=== PATIENT | male | born 1975 | race Caucasian/White ===

== ENCOUNTER 2016-11-17 12:24 | Inpatient (IN) | payer OTHER ==
[2016-11-17 13:50] VITALS: BMI 22.6
--- NOTE | 2016-11-17 14:28 | HP ---
CIWA Score - CIWA Score Nausea/Vomitin-No Nausea/No Vomiting Muscle Tremors: 4-Moderate,w/Arms Extend Anxiety: 4-Mod. Anxious/Guarded Agitation: 4-Moderately Restless Paroxysmal Sweats: 3 Orientation: 0-Oriented Tacttile Disturbances: 0-None Auditory Disturbances: 0-None Visual Disturbances: 0-None Headache: 2-Mild CIWA-Ar Total Score: 17 Admission ROS BHS - HPI Chief Complaint: I am here for detox. Allergies/Adverse Reactions: Allergies Allergy/AdvReac Type Severity Reaction Status Date / Time Fish Containing Products Allergy Severe Difficulty Verified 11/17/16 14:23 Breathing No Known Drug Allergies Allergy Verified 01/17/16 13:10 History of Present Illness: pt is a 41yr old male with a history of alcohol, cocaine, benzodiazapine dependence seeking detox for treatment. pt is on a mmtp program received 100mg last dose given today. Exam Limitations: No Limitations - Ebola screening Have you traveled outside of the country in the last 21 days: No Have you had contact with anyone from an Ebola affected area: No Have you been sick,other than usual withdrawal symptoms: No Do you have a fever: No - Review of Systems Constitutional: Chills, Diaphoresis, Loss of Appetite, Night Sweats, Changes in sleep, Unintentional Wgt. Loss EENT: reports: Tearing, Nose Congestion Respiratory: reports: No Symptoms reported Cardiac: reports: No Symptoms Reported GI: reports: Poor Appetite, Poor Fluid Intake : reports: No Symptoms Reported Musculoskeletal: reports: No Symptoms Reported Integumentary: reports: Flushing, Sweating Neuro: reports: Tingling, Tremors Endocrine: reports: Flushing, Intolerance to Heat, Increased Hunger Hematology: reports: No Symptoms Reported Psychiatric: reports: Judgement Intact, Mood/Affect Appropiate, Orientated x3, Agitated, Anxious Other Systems: Reviewed and Negative Patient History - Patient Medical History Hx Anemia: No Hx Asthma: Yes Hx Chronic Obstructive Pulmonary Disease (COPD): No Hx Cancer: No Hx Cardiac Disorders: No Hx Congestive Heart Failure: No Hx Hypertension: No Hx Hypercholesterolemia: No Hx Pacemaker: No HX Cerebrovascular Accident: No Hx Seizures: No Hx Dementia: No Hx Diabetes: No Hx Gastrointestinal Disorders: Yes (acid reflux, hemmorhoids ) Hx Liver Disease: Yes (CIRRHOSIS) Hx Genitourinary Disorders: No Hx Sexually Transmitted Disorders: No Hx Renal Disease (ESRD): No Hx Thyroid Disease: No Hx Human Immunodeficiency Virus (HIV): Yes (NO MEDS) Hx Hepatitis C: Yes (NO TREATMENT) Hx Depression: No Hx Suicide Attempt: No (denies) Hx Bipolar Disorder: Yes (ANXIETY DISORDER) Hx Schizophrenia: No - Patient Surgical History Past Surgical History: Yes Hx Neurologic Surgery: No Hx Cataract Extraction: No Hx Cardiac Surgery: No Hx Lung Surgery: No Hx Breast Surgery: No Hx Breast Biopsy: No Hx Abdominal Surgery: No Hx Appendectomy: No Hx Cholecystectomy: No Hx Genitourinary Surgery: No Hx Section: No Hx Orthopedic Surgery: No Other Surgical History: LEFT UPPER WISDOM TOOTH EXTRACTION, 10/2012 Anesthesia Reaction: No - PPD History Documented Results: Negative w/o proof Date: 07/27/15 Results: 0 mm PPD to be Administered?: Yes - Reproductive History Patient is a Female of Child Bearing Age (11 -55 yrs old): No - Smoking Cessation Smoking history: Current every day smoker Have you smoked in the past 12 months: Yes Aproximately how many cigarettes per day: 20 Cigars Per Day: 0 Hx Chewing Tobacco Use: No Initiated information on smoking cessation: Yes 'Breaking Loose' booklet given: 11/17/16 - Substance & Tx. History Hx Alcohol Use: Yes Hx Substance Use: Yes Substance Use Type: Alcohol, Cocaine, Tranquilizers Hx Substance Use Treatment: Yes - Substances Abused Alcohol Route: Oral Frequency: Daily Amount used: 1 CASE OF BEER Age of first use: 14 Date of Last Use: 11/17/16 Alprazolam (Xanax) Route: Oral Frequency: Daily Amount used: 6MG Age of first use: 15 Date of Last Use: 11/16/16 Cocaine Route: Injection Frequency: Daily Amount used: 1 GRAM Age of first use: 16 Date of Last Use: 11/16/16 Marijuana/Hashish Route: Smoking Frequency: Daily Amount used: 1 BLUNT Age of first use: 13 Date of Last Use: 11/17/16 Heroin Route: Injection Frequency: Daily Amount used: 1-2 BAGS Age of first use: 16 Date of Last Use: 11/16/16 Family Disease History - Family Disease History Family Disease History: Diabetes: Grandparent (ALCOHOL), Heart Disease: Grandparent, Respiratory: Grandparent, Mother (alcohol), Other: Grandparent, Mother Admission Physical Exam [facility] - Vital Signs Vital Signs: Vital Signs - 24 hr 11/17/16 13:46 Temperature 98 F Pulse Rate 64 Respiratory 20 Rate Blood Pressure 110/64 - Physical General Appearance: Yes: Appropriately Dressed, Moderate Distress, Tremorous, Irritable, Sweating, Anxious HEENTM: Yes: Hearing grossly Normal, Nasal Congestion, Rhinorrhea Respiratory: Yes: Lungs Clear, Normal Breath Sounds, No Respiratory Distress Neck: Yes: No masses,lesions,Nodules Breast: Yes: Within Normal Limits Cardiology: Yes: Regular Rhythm, Regular Rate, S1, S2 Abdominal: Yes: Normal Bowel Sounds, Non Tender, Soft Genitourinary: Yes: Within Normal Limits Back: Yes: Normal Inspection Musculoskeletal: Yes: full range of Motion, Gait Steady, Back pain, Joint Stiffness Extremities: Yes: Normal Capillary Refill, Normal Inspection, Non-Tender, Tremors Neurological: Yes: Fully Oriented, Alert, Normal Response Integumentary: Yes: Normal Color, Diaphoresis Lymphatic: Yes: Within Normal Limits - Diagnostic (1) Alcohol dependence with uncomplicated withdrawal Current Visit: Yes Status: Chronic (2) Uncomplicated sedative, hypnotic or anxiolytic withdrawal Current Visit: Yes Status: Chronic (3) AIDS (acquired immune deficiency syndrome) Current Visit: Yes Status: Chronic Comment: non compliant (4) Alcohol dependence Current Visit: No Status: Deleted (5) Asthma Current Visit: Yes Status: Chronic (6) Cannabis dependence Current Visit: Yes Status: Chronic (7) Cocaine dependence, uncomplicated Current Visit: Yes Status: Chronic (8) Depression with anxiety Current Visit: No Status: Deleted (9) Essential hypertension Current Visit: No Status: Deleted (10) Hepatitis C Current Visit: No Status: Chronic Qualifiers: Viral hepatitis chronicity: chronic Hepatic coma status: without hepatic coma Qualified Code(s): B18.2 - Chronic viral hepatitis C (11) Methadone maintenance therapy patient Current Visit: Yes Status: Chronic Comment: last dose taken today 100mg (12) Nicotine dependence Current Visit: Yes Status: Chronic Cleared for Admission [facility] - Detox or Rehab [facility] Level of Care: Medically Managed Detox Regimen/Protocol: Valium [facility] Breath Alcohol Content Breath Alcohol Content: 0 Urine Drug Screen - Results Urine Drug Screen Results: THC-Marijuana, CARMELA-Cocaine, OPI-Opiates, BZO- Benzodiazepines, MTD-Methadone, TCA-Tricyclic Antidepress, OXY-Oxycodone
[2016-11-17] MEDS ORDERED: hydrOXYzine PAMOATE 50 MG CAPSULE (FP) PO PRN (14:57)
[2016-11-17] MEDS ORDERED: MENTHOL/PHENOL 1 EACH UD MM PRN (14:57)
[2016-11-17] MEDS ORDERED: MAGNESIUM CITRATE 300 ML BOTTLE PO PRN (14:57)
[2016-11-17] MEDS ORDERED: LOPERAMIDE HCL 2 MG CAPSULE PO PRN (14:57)
[2016-11-17] MEDS ORDERED: diphenhydrAMINE HCL 50 MG CAPSULE PO PRN (14:57)
[2016-11-17] MEDS ORDERED: guaiFENesin/D-METHORPHAN HB 10 ML UNIT-DOSE CUPS PO PRN (14:57)
[2016-11-17] MEDS ORDERED: ACETAMINOPHEN 325 MG TABLET (FP) PO PRN (14:57)
[2016-11-17] MEDS ORDERED: IBUPROFEN 400 MG TABLET (FP) PO PRN (14:57)
[2016-11-17] MEDS ORDERED: P-EPHED 60MG/TRIPROLIDI 2.5MG TABLET PO PRN (14:57)
[2016-11-17] MEDS ORDERED: MAG HYDROX/AL HYDROX/SIMETH 30 ML UNIT-DOSE CUP PO PRN (14:57)
[2016-11-17] MEDS ORDERED: MAGNESIUM HYDROX 2400MG/30ML ORAL SUSPENSION 30 ML CUP PO PRN (14:57)
[2016-11-17] MEDS ORDERED: ALBUTEROL SO4 6.7 GM HFA INHALER IH PRN (15:00)
[2016-11-17] MEDS ORDERED: diazePAM 5 MG TABLET PO ONE (16:30)
[2016-11-17] MEDS: diazePAM 5 MG TABLET PO SCH ×2 (17:01→22:33)
[2016-11-17 20:06] LABS: URINE APPEARANCE CLEAR; URINE BILIRUBIN NEGATIVE (NEGATIVE); URINE BLOOD NEGATIVE (NEGATIVE); URINE COLOR AMBER; URINE GLUCOSE (UA) NEGATIVE (NEGATIVE); URINE KETONE NEGATIVE (NEGATIVE); URINE LEUK ESTERASE NEGATIVE (NEGATIVE); URINE NITRITE NEGATIVE (NEGATIVE); URINE PROTEIN NEGATIVE (NEGATIVE); URINE UROBILINOGEN 2.0 E.U/dl E.U./dl (0.2-1.0)
[2016-11-17] MEDS: THIAMINE HCL 100 MG TABLET (FP) PO SCH (22:33)
[2016-11-17] MEDS: RANITIDINE HCL 150 MG TABLET (FP) PO SCH (22:33)
[2016-11-18] MEDS: diazePAM 5 MG TABLET PO SCH ×3 (06:02→22:26)
[2016-11-18] MEDS ORDERED: METHADONE HCL 10 MG TABLET PO SCH (07:30)
[2016-11-18] MEDS ORDERED: METHADONE HCL 40 MG DISPERSABLE TABLET ONE (07:41)
[2016-11-18] MEDS ORDERED: METHADONE HCL 10 MG TABLET ONE (07:41)
[2016-11-18] MEDS: METHADONE 80 MG, METHADONE 20 MG PO SCH (07:43)
[2016-11-18] MEDS: diazePAM 5 MG TABLET PO PRN ×2 (09:38→17:27)
[2016-11-18] MEDS: NICOTINE 21 MG/24 HOURS TOPICAL PATCH TD SCH (09:38)
[2016-11-18] MEDS: PRENATAL VITAMINS W/ FOLIC ACID TABLET (FP) PO SCH (09:39)
[2016-11-18] MEDS: RANITIDINE HCL 150 MG TABLET (FP) PO SCH ×2 (09:39→22:26)
[2016-11-18 10:08] LABS: MCH 27.6 pg (25.7-33.7); MCHC 32.9 g/dl (32.0-35.9); MEAN CELL VOLUME 83.9 fl (80-96); MEAN PLT VOLUME 9.4 fl (7.5-11.1); PLATELET COUNT 99 K/MM3 (134-434); RDW 15.1 % (11.9-15.9); WHITE BLOOD COUNT 4.4 K/mm3 (4.0-10.0)
[2016-11-18 11:03] LABS: ALBUMIN 3.7 g/dl (3.4-5.0); ALK PHOS 109 U/L (45-117); ANION GAP 7 (8-16); BILIRUBIN,TOTAL 0.6 mg/dL (0.2-1.0); CALCIUM 8.2 mg/dL (8.5-10.1); CO2 29 mmol/L (21-32); CREATININE 0.7 mg/dL (0.7-1.3); GLUCOSE,RANDOM 93 mg/dL (74-106); SGOT/AST 75 U/L (15-37); SGPT/ALT 82 U/L (12-78); TOT PROT 7.8 g/dl (6.4-8.2)
--- NOTE | 2016-11-18 11:39 | CONSULT ---
[facility] Psychiatric Consult - Data Date of interview: 11/18/16 Admission source: [facility] Identifying data: Readmission to [facility] for this 41 y/o male seeking detox treatment on for heroin,cocaine,alcohol,benzodiazepine and marihuana dependence.Patent is single,a father of one,homeless,unemployed and supported on [employer] funds. Substance Abuse History: - Smoking Cessation. Smoking history: Current every day smoker. Have you smoked in the past 12 months: Yes. Aproximately how many cigarettes per day: 20. Cigars Per Day: 0. Hx Chewing Tobacco Use: No. Initiated information on smoking cessation: Yes. 'Breaking Loose' booklet given : 11/17/16. - Substance & Tx. History. Hx Alcohol Use: Yes. Hx Substance Use : Yes. Substance Use Type: Alcohol, Cocaine, Tranquilizers. Hx Substance Use Treatment: Yes. - Substances Abused. Alcohol. Route: Oral. Frequency: Daily. Amount used: 1 CASE OF BEER. Age of first use: 14. Date of Last Use: 11/17/16. Alprazolam (Xanax). Route: Oral. Frequency: Daily. Amount used : 6MG. Age of first use: 15. Date of Last Use: 11/16/16. Cocaine. Route: Injection. Frequency: Daily. Amount used: 1 GRAM. Age of first use: 16. Date of Last Use: 11/16/16. Marijuana/Hashish. Route: Smoking. Frequency: Daily. Amount used: 1 BLUNT. Age of first use: 13. Date of Last Use: . Heroin. Route: Injection. Frequency: Daily. Amount used: 1-2 BAGS. Age of first use: 16. Date of Last Use: 11/16/16. Confirmed by patient. Medical History: Remarkable for bronchial asthma,HIV infection since 07/2015 ( not on ART meds),cirrhosis of the liver,hepatitis C,GERD and weight loss. Psychiatric History: No reported history of psychiatric hospitalizations.Patient endorses MDD,Anxiety Disorder and insomnia.He indicates that he is on methadone maintenance (100 mg/day) at the [facility] in the [place].Mr Delgado states that he used to be on zoloft,clonidine, vistaril,seroquel and remeron until he could no longer afford his medications due to cancellation of insurance coverage.Patient expresses the wish to resume his medications on the condition that they be prescribed at low doses.No history of suicide attempts. Physical/Sexual Abuse/Trauma History: Patient denies. Additional Comment: Urine Drug Screen Results: THC-Marijuana, CARMELA-Cocaine, OPI- Opiates, BZO-Benzodiazepines, MTD-Methadone, TCA-Tricyclic Antidepress, OXY- Oxycodone.Noted. Mental Status Exam - Mental Status Exam Alert and Oriented to: Time, Place, Person Cognitive Function: Good Patient Appearance: Well Groomed (thin habitus) Mood: Withdrawn, Anxious Affect: Mood Congruent Patient Behavior: Fatigued, Appropriate, Cooperative Speech Pattern: Clear, Appropriate Voice Loudness: Normal Thought Process: Goal Oriented Thought Disorder: Not Present Hallucinations: Denies Suicidal Ideation: Denies Homicidal Ideation: Denies Insight/Judgement: Poor Sleep: Poorly, Difficulty falling asleep Appetite: Poor, Weight loss Muscle strength/Tone: Normal Gait/Station: Normal Psychiatric Findings - Problem List ([place] 1, 2,3) (1) Alcohol dependence with uncomplicated withdrawal Current Visit: Yes Status: Acute (2) Cannabis dependence Current Visit: Yes Status: Acute (3) Cocaine dependence, uncomplicated Current Visit: Yes Status: Acute (4) Nicotine dependence Current Visit: Yes Status: Acute (5) Uncomplicated sedative, hypnotic or anxiolytic withdrawal Current Visit: Yes Status: Acute (6) Methadone maintenance therapy patient Current Visit: Yes Status: Chronic Comment: last dose taken today 100mg (7) Substance induced mood disorder Current Visit: Yes Status: Acute (8) AIDS (acquired immune deficiency syndrome) Current Visit: Yes Status: Chronic Comment: non compliant (9) Asthma Current Visit: Yes Status: Chronic (10) Hepatitis C Current Visit: Yes Status: Chronic Qualifiers: Viral hepatitis chronicity: chronic Hepatic coma status: without hepatic coma Qualified Code(s): B18.2 - Chronic viral hepatitis C (11) Insomnia Current Visit: No Status: Chronic - Initial Treatment Plan Initial Treatment Plan: Psychoeducation.Detoxification.Medications :remeron 7.5 mg po hs.Side effects/benefits discussed with patient.He agrees with this careplan.Observation.
--- NOTE | 2016-11-18 12:53 | EKG ---
Test Reason : Blood Pressure : / mmHG Vent. Rate : 050 BPM Atrial Rate : 050 BPM P-R Int : 146 ms QRS Dur : 086 ms QT Int : 492 ms P-R-T Axes : 044 061 055 degrees QTc Int : 448 ms SINUS BRADYCARDIA OTHERWISE NORMAL ECG WHEN COMPARED WITH ECG OF 12-OCT-2014 17:24, NO SIGNIFICANT CHANGE WAS FOUND Confirmed by KIERA RODRIGUEZ MD ([id number]) on 11/18/2016 12:53:27 PM Referred By: Confirmed By:KIREA RODRIGUEZ MD
[2016-11-18] MEDS: NICOTINE POLACRILEX 4 MG GUM BC PRN (18:44)
[2016-11-18] MEDS: MIRTAZAPINE 15 MG TABLET (FP) PO SCH (22:26)
[2016-11-18] MEDS: THIAMINE HCL 100 MG TABLET (FP) PO SCH (22:26)
[2016-11-19] MEDS ORDERED: METHADONE HCL 10 MG TABLET ONE (03:53)
[2016-11-19] MEDS ORDERED: METHADONE HCL 40 MG DISPERSABLE TABLET ONE (03:54)
[2016-11-19] MEDS: diazePAM 5 MG TABLET PO PRN ×2 (05:45→17:33)
[2016-11-19] MEDS: METHADONE 80 MG, METHADONE 20 MG PO SCH (07:03)
--- NOTE | 2016-11-19 08:34 | PN ---
S CIWA - CIWA Score Nausea/Vomitin Muscle Tremors: 4-Moderate,w/Arms Extend Anxiety: 4-Mod. Anxious/Guarded Agitation: 4-Moderately Restless Paroxysmal Sweats: 3 Orientation: 0-Oriented Tacttile Disturbances: 1-Very Mild Itch/Numbness Auditory Disturbances: 0-None Visual Disturbances: 0-None Headache: 1-Very Mild CIWA-Ar Total Score: 20 BHS Progress Note (SOAP) Subjective: nausea, sweats, interrupted sleep, anxiety, tremor Objective: 11/19/16 08:33 Vital Signs (72 hours) 11/17/16 11/17/16 11/18/16 13:46 17:26 00:20 Temperature 98 F 97.4 F L Pulse Rate 64 54 L Respiratory 20 18 18 Rate Blood Pressure 110/64 97/59 11/18/16 11/18/16 11/18/16 03:41 06:33 09:37 Temperature 97.1 F L 96.3 F L Pulse Rate 77 70 Respiratory 18 18 18 Rate Blood Pressure 136/93 143/88 11/18/16 11/18/16 11/18/16 14:26 14:29 17:54 Temperature 96.1 F L 96.1 F L 97.6 F Pulse Rate 64 64 63 Respiratory 18 18 18 Rate Blood Pressure 115/75 115/75 113/62 11/18/16 11/19/16 11/19/16 22:23 00:31 03:30 Temperature 96.6 F L Pulse Rate 66 Respiratory 18 18 16 Rate Blood Pressure 123/71 11/19/16 06:38 Temperature 96.3 F L Pulse Rate 69 Respiratory 18 Rate Blood Pressure 122/85 Laboratory Tests 11/17/16 11/18/16 11/18/16 19:00 05:50 05:50 WBC 4.4 RBC 4.51 Hgb 12.4 Hct 37.9 MCV 83.9 MCHC 32.9 RDW 15.1 Plt Count 99 L D MPV 9.4 Sodium 139 Potassium 3.7 Chloride 103 Carbon Dioxide 29 Anion Gap 7 L BUN 13 D Creatinine 0.7 Creat Clearance w eGFR > 60 Random Glucose 93 Calcium 8.2 L Total Bilirubin 0.6 D AST 75 H D ALT 82 H D Alkaline Phosphatase 109 D Total Protein 7.8 D Albumin 3.7 Urine Color Maria Urine Appearance Clear Urine pH 5.0 Ur Specific [place] 1.027 Urine Protein Negative Urine Glucose (UA) Negative Urine Ketones Negative Urine Blood Negative Urine Nitrite Negative Urine Bilirubin Negative Urine Urobilinogen 2.0 e.u/dl Ur Leukocyte Esterase Negative RPR Titer 11/18/16 05:50 WBC RBC Hgb Hct MCV MCHC RDW Plt Count MPV Sodium Potassium Chloride Carbon Dioxide Anion Gap BUN Creatinine Creat Clearance w eGFR Random Glucose Calcium Total Bilirubin AST ALT Alkaline Phosphatase Total Protein Albumin Urine Color Urine Appearance Urine pH Ur Specific [place] Urine Protein Urine Glucose (UA) Urine Ketones Urine Blood Urine Nitrite Urine Bilirubin Urine Urobilinogen Ur Leukocyte Esterase RPR Titer Nonreactive Assessment: 11/19/16 08:33 withdrawal sx, Plan: cont detox, fluids, encourage ambulation
[2016-11-19] MEDS ORDERED: SERTRALINE HCL 25 MG TABLET (FP) PO SCH (10:00)
[2016-11-19] MEDS: RANITIDINE HCL 150 MG TABLET (FP) PO SCH ×2 (10:35→22:15)
[2016-11-19] MEDS: diazePAM 5 MG TABLET PO SCH ×2 (10:36→22:15)
[2016-11-19] MEDS: PRENATAL VITAMINS W/ FOLIC ACID TABLET (FP) PO SCH (10:36)
[2016-11-19] MEDS: NICOTINE 21 MG/24 HOURS TOPICAL PATCH TD SCH (10:36)
[2016-11-19] MEDS: NICOTINE POLACRILEX 4 MG GUM BC PRN (17:34)
[2016-11-19] MEDS: THIAMINE HCL 100 MG TABLET (FP) PO SCH (22:15)
[2016-11-19] MEDS: MIRTAZAPINE 15 MG TABLET (FP) PO SCH (22:16)
[2016-11-20] MEDS ORDERED: METHADONE HCL 10 MG TABLET ONE (03:33)
[2016-11-20] MEDS ORDERED: METHADONE HCL 40 MG DISPERSABLE TABLET ONE (03:34)
[2016-11-20] MEDS: diazePAM 5 MG TABLET PO PRN ×2 (05:45→14:38)
[2016-11-20] MEDS: METHADONE 80 MG, METHADONE 20 MG PO SCH (07:10)
[2016-11-20] MEDS: NICOTINE 21 MG/24 HOURS TOPICAL PATCH TD SCH (10:54)
[2016-11-20] MEDS: diazePAM 5 MG TABLET PO SCH ×2 (10:55→22:08)
[2016-11-20] MEDS: RANITIDINE HCL 150 MG TABLET (FP) PO SCH ×2 (10:55→22:08)
[2016-11-20] MEDS: PRENATAL VITAMINS W/ FOLIC ACID TABLET (FP) PO SCH (10:55)
--- NOTE | 2016-11-20 12:58 | PN ---
S CIWA - CIWA Score Nausea/Vomitin Muscle Tremors: 4-Moderate,w/Arms Extend Anxiety: 4-Mod. Anxious/Guarded Agitation: 4-Moderately Restless Paroxysmal Sweats: 3 Orientation: 0-Oriented Tacttile Disturbances: 0-None Auditory Disturbances: 0-None Visual Disturbances: 0-None Headache: 0-None Present CIWA-Ar Total Score: 18 BHS Progress Note (SOAP) Subjective: nausea, sweats, interrupted sleep, anxiety, tremor Objective: 11/20/16 12:57 Vital Signs - 8 hr 11/20/16 11/20/16 06:37 10:18 Temperature 97.4 F L 98.1 F Pulse Rate 60 69 Respiratory 18 20 Rate Blood Pressure 146/97 113/78 11/20/16 12:57 Laboratory Tests 11/17/16 11/18/16 11/18/16 19:00 05:50 05:50 WBC 4.4 RBC 4.51 Hgb 12.4 Hct 37.9 MCV 83.9 MCHC 32.9 RDW 15.1 Plt Count 99 L D MPV 9.4 Sodium 139 Potassium 3.7 Chloride 103 Carbon Dioxide 29 Anion Gap 7 L BUN 13 D Creatinine 0.7 Creat Clearance w eGFR > 60 Random Glucose 93 Calcium 8.2 L Total Bilirubin 0.6 D AST 75 H D ALT 82 H D Alkaline Phosphatase 109 D Total Protein 7.8 D Albumin 3.7 Urine Color Maria Urine Appearance Clear Urine pH 5.0 Ur Specific [place] 1.027 Urine Protein Negative Urine Glucose (UA) Negative Urine Ketones Negative Urine Blood Negative Urine Nitrite Negative Urine Bilirubin Negative Urine Urobilinogen 2.0 e.u/dl Ur Leukocyte Esterase Negative RPR Titer 11/18/16 05:50 WBC RBC Hgb Hct MCV MCHC RDW Plt Count MPV Sodium Potassium Chloride Carbon Dioxide Anion Gap BUN Creatinine Creat Clearance w eGFR Random Glucose Calcium Total Bilirubin AST ALT Alkaline Phosphatase Total Protein Albumin Urine Color Urine Appearance Urine pH Ur Specific [place] Urine Protein Urine Glucose (UA) Urine Ketones Urine Blood Urine Nitrite Urine Bilirubin Urine Urobilinogen Ur Leukocyte Esterase RPR Titer Nonreactive Assessment: 11/20/16 12:57 withdrawal sx Plan: cont detox, fluids, encourage ambulation
--- NOTE | 2016-11-20 15:06 | PN ---
Psychiatric Progress Note Vital Signs: Vital Signs Period Temp Pulse Resp BP Sys/Miramontes Pulse Ox Last 24 Hr 97.0 F-98.1 F 60-74 18-20 113-146/74-97 Date of Session: 11/20/16 Chief Complaint:: Insomnia HPI: Patient reports insomnia, reports good response on Seroquel 200mg po qhs in the past Current Medications: Active Medications Generic Name Dose Route Start Last Admin Trade Name Freq PRN Reason Stop Dose Admin Acetaminophen 650 mg 11/17/16 14:57 Tylenol - PO Q4H PRN FEVER OR PAIN Al Hydroxide/Mg Hydroxide 30 ml 11/17/16 14:57 Mylanta Oral Suspension - PO Q6H PRN DYSPEPSIA Albuterol Sulfate 2 puff 11/17/16 15:00 Ventolin Hfa Inhaler - IH Q4H PRN ASTHMA Diazepam 5 mg 11/19/16 10:00 11/20/16 10:55 Valium - PO 11/20/16 22:01 5 mg BID ELKIN Administration Diazepam 5 mg 11/21/16 10:00 Valium - PO 11/21/16 10:01 DAILY ELKIN Diphenhydramine HCl 50 mg 11/17/16 14:57 Benadryl - PO HSMR1 PRN INSOMNIA Eucalyptus/Menthol/Phenol/Sorbitol 1 each 11/17/16 14:57 Cepastat Lozenge - MM Q4H PRN SORE THROAT Guaifenesin 10 ml 11/17/16 14:57 Robitussin Dm - PO Q6H PRN COUGH Hydroxyzine Pamoate 50 mg 11/17/16 14:57 11/20/16 14:38 Vistaril - PO 50 mg Q4H PRN Administration AGITATION Ibuprofen 400 mg 11/17/16 14:57 Motrin - PO Q6H PRN SEVERE PAIN Loperamide HCl 4 mg 11/17/16 14:57 Imodium - PO Q6H PRN DIARRHEA Magnesium Citrate 300 ml 11/17/16 14:57 Citroma - PO Q48H PRN CONSTIPATION Magnesium Hydroxide 30 ml 11/17/16 14:57 Milk Of Magnesia - PO DAILY PRN CONSTIPATION Methadone HCl 80 mg/ Methadone 100 mg 11/18/16 07:45 11/20/16 07:10 HCl 20 mg PO 100 mg DAILY@0700 ELKIN Administration Mirtazapine 7.5 mg 11/18/16 22:00 11/19/16 22:16 Remeron - PO 7.5 mg HS ELKIN Administration Nicotine 21 mg 11/18/16 10:00 11/20/16 10:54 Nicoderm Patch - TD 21 mg DAILY ELKIN Administration Nicotine Polacrilex 4 mg 11/17/16 14:57 11/19/16 17:34 Nicorette Gum - BC 4 mg Q2H PRN Administration NICOTINE REPLACEMENT RX Multivit/Folic Acid/Iron 1 tab 11/18/16 10:00 11/20/16 10:55 Vitamins (Sjr) - PO 1 tab DAILY ELKIN Administration Pseudoephedrine/Triprolidine 1 combo 11/17/16 14:57 Actifed - PO TID PRN NASAL CONGESTION Quetiapine Fumarate 200 mg 11/20/16 22:00 Seroquel - PO HS ELKIN Ranitidine HCl 150 mg 11/17/16 22:00 11/20/16 10:55 Zantac - PO 150 mg BID ELKIN Administration Thiamine HCl 100 mg 11/17/16 22:00 11/19/16 22:15 Vitamin B1 - PO 100 mg HS ELKIN Administration Mental Status Exam - Mental Status Exam Alert and Oriented to: Person Cognitive Function: Fair Patient Appearance: Unkempt Mood: Sad Affect: Flat Patient Behavior: Sedated Speech Pattern: Delayed Voice Loudness: Mildly Soft/Quiet Thought Process: Goal Oriented Thought Disorder: Being Controlled Hallucinations: Denies Suicidal Ideation: Denies Homicidal Ideation: Denies Insight/Judgement: Fair Sleep: Difficulty falling asleep Appetite: Fair Muscle strength/Tone: Rigidity Gait/Station: Shuffling Additional Comments: Seroquel 200mg po qhs Psychiatric Treatment Plan - Problem List (1) Alcohol dependence with uncomplicated withdrawal Current Visit: Yes (2) Cannabis dependence Current Visit: Yes (3) Cocaine dependence, uncomplicated Current Visit: Yes (4) Nicotine dependence Current Visit: Yes (5) Substance induced mood disorder Current Visit: Yes Initial treatment plan: Seroquel 200mg po qhs
[2016-11-20] MEDS ORDERED: QUEtiapine FUMARATE 200 MG TABLET PO SCH (22:00)
[2016-11-20] MEDS: THIAMINE HCL 100 MG TABLET (FP) PO SCH (22:08)
[2016-11-20] MEDS: MIRTAZAPINE 15 MG TABLET (FP) PO SCH (22:08)
[2016-11-20] MEDS: NICOTINE POLACRILEX 4 MG GUM BC PRN (23:29)
[2016-11-21] MEDS ORDERED: METHADONE HCL 10 MG TABLET ONE (03:40)
[2016-11-21] MEDS ORDERED: METHADONE HCL 40 MG DISPERSABLE TABLET ONE (03:40)
[2016-11-21] MEDS ORDERED: METHADONE 80 MG, METHADONE 20 MG PO SCH (06:00)
--- NOTE | 2016-11-21 08:46 | PN ---
BHS Progress Note (SOAP) Subjective: no complaints Objective: 11/21/16 08:44 Vital Signs - 24 hr 11/20/16 11/20/16 11/20/16 10:18 13:42 18:09 Temperature 98.1 F 97.0 F L 97.0 F L Pulse Rate 69 74 67 Respiratory 20 20 20 Rate Blood Pressure 113/78 119/74 109/71 11/20/16 11/21/16 21:49 06:35 Temperature 98.4 F 98 F Pulse Rate 70 107 H Respiratory 20 18 Rate Blood Pressure 125/72 144/85 Laboratory Tests 11/17/16 11/18/16 11/18/16 19:00 05:50 05:50 WBC 4.4 RBC 4.51 Hgb 12.4 Hct 37.9 MCV 83.9 MCHC 32.9 RDW 15.1 Plt Count 99 L D MPV 9.4 Sodium 139 Potassium 3.7 Chloride 103 Carbon Dioxide 29 Anion Gap 7 L BUN 13 D Creatinine 0.7 Creat Clearance w eGFR > 60 Random Glucose 93 Calcium 8.2 L Total Bilirubin 0.6 D AST 75 H D ALT 82 H D Alkaline Phosphatase 109 D Total Protein 7.8 D Albumin 3.7 Urine Color Maria Urine Appearance Clear Urine pH 5.0 Ur Specific [place] 1.027 Urine Protein Negative Urine Glucose (UA) Negative Urine Ketones Negative Urine Blood Negative Urine Nitrite Negative Urine Bilirubin Negative Urine Urobilinogen 2.0 e.u/dl Ur Leukocyte Esterase Negative RPR Titer 11/18/16 05:50 WBC RBC Hgb Hct MCV MCHC RDW Plt Count MPV Sodium Potassium Chloride Carbon Dioxide Anion Gap BUN Creatinine Creat Clearance w eGFR Random Glucose Calcium Total Bilirubin AST ALT Alkaline Phosphatase Total Protein Albumin Urine Color Urine Appearance Urine pH Ur Specific [place] Urine Protein Urine Glucose (UA) Urine Ketones Urine Blood Urine Nitrite Urine Bilirubin Urine Urobilinogen Ur Leukocyte Esterase RPR Titer Nonreactive Assessment: 11/21/16 08:45 completed detox, low platelets, elevated lfts secondary to alcoholic hepatitis/ hep c Plan: medicallyt stable d/c to rehab today.
--- NOTE | 2016-11-21 08:48 | DS ---
[facility] Detox Discharge Summary Admission Date: 11/17/16 Discharge Date: 11/21/16 - History Present History: Alcohol Dependence, Cannabis Dependence, Cocaine Dependence, MMTP Pertinent Past History: nicotien dependence, asthma, anxiety, depression and insomnia - Physical Exam Results Vital Signs: Vital Signs Temperature 98 F 11/21/16 06:35 Pulse Rate 107 H 11/21/16 06:35 Respiratory Rate 18 11/21/16 06:35 Blood Pressure 144/85 11/21/16 06:35 O2 Sat by Pulse Oximetry (%) Pertinent Admission Physical Exam Findings: withdrawal sx - Treatment Hospital Course: Detox Protocol Followed, Detoxed Safely, Responded well, Discharged Condition Good, Rehab Referral Accepted Patient has Accepted a Rehab Referral to: Yes - Medication Discharge Medications: Ambulatory Orders Quetiapine Fumarate [Seroquel -] 200 mg PO HS #30 tab 11/20/16 Albuterol Sulfate Inhaler - [Ventolin HFA Inhaler -] 2 inh IH Q4H PRN #1 inh - Diagnosis (1) Alcohol dependence with uncomplicated withdrawal Current Visit: Yes Status: Chronic (2) Cannabis dependence Current Visit: Yes Status: Chronic (3) Cocaine dependence, uncomplicated Current Visit: Yes Status: Chronic (4) Nicotine dependence Current Visit: Yes Status: Chronic (5) Substance induced mood disorder Current Visit: Yes Status: Acute (6) Uncomplicated sedative, hypnotic or anxiolytic withdrawal Current Visit: Yes Status: Chronic (7) AIDS (acquired immune deficiency syndrome) Current Visit: Yes Status: Chronic (8) Asthma Current Visit: Yes Status: Chronic (9) Hepatitis C Current Visit: Yes Status: Chronic Qualifiers: Viral hepatitis chronicity: chronic Hepatic coma status: without hepatic coma Qualified Code(s): B18.2 - Chronic viral hepatitis C (10) Methadone maintenance therapy patient Current Visit: Yes Status: Chronic (11) Insomnia Current Visit: No Status: Chronic (12) Syncope Current Visit: No Status: Resolved - AMA Did Patient Leave Against Medical Advice: No
[2016-11-21] MEDS ORDERED: diazePAM 5 MG TABLET PO SCH (10:00)
[2016-11-21] MEDS: PRENATAL VITAMINS W/ FOLIC ACID TABLET (FP) PO SCH (10:55)
[2016-11-21] MEDS: RANITIDINE HCL 150 MG TABLET (FP) PO SCH (10:55)
[2016-11-21] MEDS: NICOTINE 21 MG/24 HOURS TOPICAL PATCH TD SCH (10:55)
[2016-11-21 14:08] VITALS: BP 120/75; PULSE 82; TEMP 98.5
== END 2016-11-21 12:44 | disposition other institution (70) | DRG 773 ==
LOC: YASAS 12:24 → Y3N 15:57
PROVIDERS: ADMIT Internal Medicine; ATTEND Internal Medicine
PROC: HZ2ZZZZ Detoxification Services for Substance Abuse Treatment (ICD-10-PCS; principal; 2016-11-17)
DX: F10.230 Alcohol dependence with withdrawal, uncomplicated (principal); F13.230 Sedative, hypnotic or anxiolytic dependence with withdrawal, uncomplicated; F11.20 Opioid dependence, uncomplicated; F14.20 Cocaine dependence, uncomplicated; F12.20 Cannabis dependence, uncomplicated; F17.210 Nicotine dependence, cigarettes, uncomplicated; F19.24 Other psychoactive substance dependence with psychoactive substance-induced mood disorder; B20 Human immunodeficiency virus [HIV] disease; J45.909 Unspecified asthma, uncomplicated; G47.00 Insomnia, unspecified; K21.9 Gastro-esophageal reflux disease without esophagitis; K64.8 Other hemorrhoids; K74.60 Unspecified cirrhosis of liver; Z86.79 Personal history of other diseases of the circulatory system
CPT/HCPCS: 36415; 80053; 81003; 85027; 86593; 93005; 93010

== ENCOUNTER 2016-11-21 13:02 | Inpatient (IN) | payer OTHER ==
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
[2016-11-21] MEDS ORDERED: P-EPHED 60MG/TRIPROLIDI 2.5MG TABLET PO PRN (14:42)
[2016-11-21] MEDS ORDERED: MAGNESIUM CITRATE 300 ML BOTTLE PO PRN (14:42)
[2016-11-21] MEDS ORDERED: NICOTINE POLACRILEX 2 MG GUM BUC PRN (14:42)
[2016-11-21] MEDS ORDERED: diphenhydrAMINE HCL 50 MG CAPSULE PO PRN (14:42)
[2016-11-21] MEDS ORDERED: MENTHOL/PHENOL 1 EACH UD MM PRN (14:42)
[2016-11-21] MEDS ORDERED: LOPERAMIDE HCL 2 MG CAPSULE PO PRN (14:42)
[2016-11-21] MEDS ORDERED: IBUPROFEN 400 MG TABLET (FP) PO PRN (14:42)
[2016-11-21] MEDS ORDERED: hydrOXYzine PAMOATE 50 MG CAPSULE (FP) PO PRN (14:42)
[2016-11-21] MEDS ORDERED: MAGNESIUM HYDROX 2400MG/30ML ORAL SUSPENSION 30 ML CUP PO PRN (14:42)
[2016-11-21] MEDS ORDERED: ACETAMINOPHEN 325 MG TABLET (FP) PO PRN (14:42)
[2016-11-21] MEDS ORDERED: MAG HYDROX/AL HYDROX/SIMETH 30 ML UNIT-DOSE CUP PO PRN (14:42)
[2016-11-21] MEDS ORDERED: guaiFENesin/D-METHORPHAN HB 10 ML UNIT-DOSE CUPS PO PRN (14:42)
[2016-11-21] MEDS ORDERED: ALBUTEROL SO4 6.7 GM HFA INHALER IH PRN (14:43)
--- NOTE | 2016-11-21 16:37 | HP ---
[facility] Rehab Assess/Revision - Admission History Admitted to Rehab from: [facility] Date of Admission to Rehab: 11/21/16 - Findings Detox History & Physical reviewed: Yes Concur with findings: Yes Comments/Additional Findings: transferred from detox to rehab admission as per protocol
[2016-11-21] MEDS ORDERED: THIAMINE HCL 100 MG TABLET (FP) PO SCH (22:00)
[2016-11-21] MEDS ORDERED: QUEtiapine FUMARATE 100 MG TABLET (FP) PO SCH (22:00)
[2016-11-22 06:41] VITALS: BP 128/72; PULSE 64; TEMP 97.2
[2016-11-22] MEDS ORDERED: NICOTINE 14 MG/24 HOURS TOPICAL PATCH TD SCH (10:00)
[2016-11-22] MEDS ORDERED: PRENATAL VITAMINS W/ FOLIC ACID TABLET (FP) PO SCH (10:00)
== END 2016-11-22 07:15 | disposition left against medical advice (07) | DRG 770 ==
LOC: YASAS 13:02 → Y3W 13:03
PROVIDERS: ADMIT Psychiatry & Neurology Psychiatry; ATTEND Psychiatry & Neurology Psychiatry
PROC: HZ42ZZZ Group Counseling for Substance Abuse Treatment, Cognitive-Behavioral (ICD-10-PCS; principal; 2016-11-21)
DX: F10.20 Alcohol dependence, uncomplicated (principal); F13.20 Sedative, hypnotic or anxiolytic dependence, uncomplicated; F11.20 Opioid dependence, uncomplicated; F14.20 Cocaine dependence, uncomplicated; F12.20 Cannabis dependence, uncomplicated; F17.210 Nicotine dependence, cigarettes, uncomplicated; F19.24 Other psychoactive substance dependence with psychoactive substance-induced mood disorder; F33.9 Major depressive disorder, recurrent, unspecified; F39 Unspecified mood [affective] disorder; B20 Human immunodeficiency virus [HIV] disease; J45.909 Unspecified asthma, uncomplicated; B18.2 Chronic viral hepatitis C; G47.00 Insomnia, unspecified; K74.60 Unspecified cirrhosis of liver

== ENCOUNTER 2017-03-05 11:51 | Inpatient (IN) | payer OTHER ==
[2017-03-05 13:38] VITALS: BMI 19.1
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
[2017-03-05] MEDS ORDERED: NICOTINE POLACRILEX 2 MG GUM BUC PRN (14:36)
[2017-03-05] MEDS ORDERED: LOPERAMIDE HCL 2 MG CAPSULE PO PRN (14:36)
[2017-03-05] MEDS ORDERED: ACETAMINOPHEN 325 MG TABLET (FP) PO PRN (14:36)
[2017-03-05] MEDS ORDERED: MAGNESIUM CITRATE 300 ML BOTTLE PO PRN (14:36)
[2017-03-05] MEDS ORDERED: guaiFENesin/D-METHORPHAN HB 10 ML UNIT-DOSE CUPS PO PRN (14:36)
[2017-03-05] MEDS ORDERED: P-EPHED 60MG/TRIPROLIDI 2.5MG TABLET PO PRN (14:36)
[2017-03-05] MEDS ORDERED: IBUPROFEN 400 MG TABLET (FP) PO PRN (14:36)
[2017-03-05] MEDS ORDERED: MENTHOL/PHENOL 1 EACH UD MM PRN (14:36)
[2017-03-05] MEDS ORDERED: diphenhydrAMINE HCL 50 MG CAPSULE PO PRN (14:36)
[2017-03-05] MEDS ORDERED: MAGNESIUM HYDROX 2400MG/30ML ORAL SUSPENSION 30 ML CUP PO PRN (14:36)
[2017-03-05] MEDS ORDERED: ALBUTEROL SO4 6.7 GM HFA INHALER IH PRN (14:41)
[2017-03-05] MEDS ORDERED: diazePAM 5 MG TABLET PO ONE (15:02)
[2017-03-05] MEDS: NICOTINE 21 MG/24 HOURS TOPICAL PATCH TD SCH (15:27)
[2017-03-05 17:43] LABS: URINE APPEARANCE CLEAR; URINE BILIRUBIN NEGATIVE (NEGATIVE); URINE BLOOD NEGATIVE (NEGATIVE); URINE COLOR DKYELLOW; URINE GLUCOSE (UA) NEGATIVE (NEGATIVE); URINE KETONE NEGATIVE (NEGATIVE); URINE LEUK ESTERASE NEGATIVE (NEGATIVE); URINE NITRITE NEGATIVE (NEGATIVE); URINE PROTEIN NEGATIVE (NEGATIVE); URINE UROBILINOGEN 2.0 E.U/dl E.U./dl (0.2-1.0)
[2017-03-05] MEDS: THIAMINE HCL 100 MG TABLET (FP) PO SCH (22:51)
[2017-03-05] MEDS: RANITIDINE HCL 150 MG TABLET (FP) PO SCH (22:51)
[2017-03-05] MEDS: diazePAM 5 MG TABLET PO SCH (22:51)
[2017-03-06] MEDS: diazePAM 5 MG TABLET PO SCH ×3 (06:14→22:14)
[2017-03-06] MEDS ORDERED: METHADONE HCL 10 MG TABLET PO ONE (08:20)
[2017-03-06] MEDS ORDERED: METHADONE 80 MG, METHADONE 30 MG PO ONE (08:35)
[2017-03-06] MEDS ORDERED: METHADONE HCL 10 MG TABLET ONE (09:32)
[2017-03-06] MEDS ORDERED: METHADONE HCL 40 MG DISPERSABLE TABLET ONE (09:32)
[2017-03-06 10:08] LABS: MCH 27.4 pg (25.7-33.7); MCHC 33.2 g/dl (32.0-35.9); MEAN CELL VOLUME 82.4 fl (80-96); MEAN PLT VOLUME 8.3 fl (7.5-11.1); PLATELET COUNT 79 K/MM3 (134-434); RDW 15.4 % (11.9-15.9); WHITE BLOOD COUNT 3.9 K/mm3 (4.0-10.0)
[2017-03-06 10:25] LABS: ALBUMIN 3.3 g/dl (3.4-5.0); ALK PHOS 67 U/L (45-117); ANION GAP 7 (8-16); BILIRUBIN,TOTAL 0.9 mg/dL (0.2-1.0); CALCIUM 8.3 mg/dL (8.5-10.1); CO2 28 mmol/L (21-32); COCKROFT - GAULT 119.59; CREATININE 0.7 mg/dL (0.7-1.3); GLUCOSE,RANDOM 94 mg/dL (74-106); SGOT/AST 59 U/L (15-37); SGPT/ALT 47 U/L (12-78); TOT PROT 7.2 g/dl (6.4-8.2)
[2017-03-06] MEDS: PRENATAL VITAMINS W/ FOLIC ACID TABLET (FP) PO SCH (10:53)
[2017-03-06] MEDS: NICOTINE 21 MG/24 HOURS TOPICAL PATCH TD SCH (10:55)
--- NOTE | 2017-03-06 11:09 | PN ---
S CIWA - CIWA Score Nausea/Vomitin Muscle Tremors: 3 Anxiety: 3 Agitation: 3 Paroxysmal Sweats: 1-Minimal Palms Moist Orientation: 0-Oriented Tacttile Disturbances: 1-Very Mild Itch/Numbness Auditory Disturbances: 1-Very Mild Visual Disturbances: 1-Very Mild Sensitivity Headache: 2-Mild CIWA-Ar Total Score: 18 BHS Progress Note (SOAP) Subjective: ALERT,IRRITABLE,ANXIOUS,INTERRUPTED SLEEP,TREMOR Objective: 03/06/17 11:07 Vital Signs Temperature 98.2 F 03/06/17 06:00 Pulse Rate 68 03/06/17 10:00 Respiratory Rate 18 03/06/17 10:00 Blood Pressure 141/79 03/06/17 10:00 O2 Sat by Pulse Oximetry (%) EKG NSR,NORMAL ECG 03/06/17 03/06/17 07:00 07:00 WBC 3.9 L RBC 4.71 Hgb 12.9 Hct 38.8 MCV 82.4 MCHC 33.2 RDW 15.4 Plt Count 79 L D Sodium 136 Potassium 4.2 Chloride 101 Carbon Dioxide 28 Anion Gap 7 L BUN 14 Creatinine 0.7 LABS PENDING Assessment: 03/06/17 11:08 WITHDRAWAL SYMPTOM 03/06/17 11:09 Plan: CONTINUE DETOX
--- NOTE | 2017-03-06 11:21 | EKG ---
Test Reason : Blood Pressure : / mmHG Vent. Rate : 067 BPM Atrial Rate : 067 BPM P-R Int : 138 ms QRS Dur : 088 ms QT Int : 440 ms P-R-T Axes : 024 057 050 degrees QTc Int : 464 ms NORMAL SINUS RHYTHM WHEN COMPARED WITH ECG OF 17-NOV-2016 16:50, NO SIGNIFICANT CHANGE WAS FOUND Confirmed by JUAN FRANCOIS MD ([id number]) on 03/06/2017 11:20:58 AM Referred By: Confirmed By:JUAN FRANCOIS MD
[2017-03-06] MEDS: MAG HYDROX/AL HYDROX/SIMETH 30 ML UNIT-DOSE CUP PO PRN (13:00)
[2017-03-06] MEDS: RANITIDINE HCL 150 MG TABLET (FP) PO SCH ×2 (13:00→22:14)
[2017-03-06] MEDS: diazePAM 5 MG TABLET PO PRN (17:25)
[2017-03-06] MEDS: cloNIDine HCL 0.1 MG TABLET PO PRN (19:03)
[2017-03-06] MEDS: hydrOXYzine PAMOATE 50 MG CAPSULE (FP) PO PRN (19:03)
--- NOTE | 2017-03-06 19:26 | CONSULT ---
[facility] Psychiatric Consult - Data Date of interview: 03/06/17 Admission source: [facility] Identifying data: Another admission to [facility] for this 41 y/o male seeking detox treatment on for heroin,cocaine,alcohol,benzodiazepine and marihuana dependence.Patient is single,a father of one,homeless,unemployed and supported on [employer] funds. Substance Abuse History: - Smoking Cessation. Smoking history: Current every day smoker. Have you smoked in the past 12 months: Yes. Aproximately how many cigarettes per day: 20. Cigars Per Day: 0. Hx Chewing Tobacco Use: No. Initiated information on smoking cessation: Yes. 'Breaking Loose' booklet given : 03/05/17. - Substance & Tx. History. Hx Alcohol Use: Yes. Hx Substance Use : Yes. Substance Use Type: Alcohol, Cocaine, Marijuana, Opiates, Tranquilizers. Hx Substance Use Treatment: Yes (02/09 IN [facility]). - Substances Abused. Alcohol. Route: Oral. Frequency: Daily. Amount used: 1 pint/ 1 case of beer. Age of first use: 13. Date of Last Use: 03/05/17. Alprazolam (Xanax). Route: Oral. Frequency: Daily. Amount used: 10mg. Age of first use: 12. Date of Last Use: 03/03/17. Cocaine. Route: Injection. Frequency: Daily. Amount used: 5 bags. Age of first use: 16. Date of Last Use : 03/05/17. Heroin. Route: Injection. Frequency: Daily. Amount used: 5 bags. Age of first use: 16. Date of Last Use: 03/05/17. Marijuana/ Hashish. Route: Smoking. Frequency: Daily. Amount used: 2-3 bags. Age of first use: 13. Date of Last Use: 03/05/17. Confirmed by patient. Medical History: Bronchial asthma,HIV infection since 07/2015 (not on ART meds), cirrhosis of the liver,gastritis,hepatitis C,GERD,hypertension and weight loss. Psychiatric History: Patient denies history of psychiatric hospitalizations.Diagnosed with MDD,Anxiety Disorder and insomnia.Currently on methadone maintenance (100 mg/day) at the [facility] in the [place].Mr Delgado reports that he is prescribed zoloft 15 mg/day (?) + clonidine ( unknown dose) + vistaril (dose notv recalled) + seroquel 200 mg/hs + remeron 45 mg/hs.No history of suicide attempts.Questionable historian.Patient states that he last took these medications in January 2017. Physical/Sexual Abuse/Trauma History: Patient declines discussion of this topic. Additional Comment: Urine Drug Screen Results: THC-Marijuana, CARMELA-Cocaine, OPI- Opiates, BAR-Barbiturates, BZO-Benzodiazepines, MTD-Methadone, OXY- Oxycodone.Noted. Mental Status Exam - Mental Status Exam Alert and Oriented to: Time, Place, Person Cognitive Function: Good Patient Appearance: Well Groomed Mood: Nervous, Anxious, Apprehensive Affect: Mood Congruent Patient Behavior: Fatigued, Appropriate, Cooperative Speech Pattern: Clear Voice Loudness: Normal Thought Process: Goal Oriented Thought Disorder: Not Present Hallucinations: Denies Suicidal Ideation: Denies Homicidal Ideation: Denies Insight/Judgement: Poor Sleep: Poorly, Difficulty falling asleep Appetite: Good Muscle strength/Tone: Normal Gait/Station: Normal Psychiatric Findings - Problem List (Tell 1, 2,3) (1) Alcohol dependence with uncomplicated withdrawal Current Visit: Yes Status: Acute (2) Opioid dependence on agonist therapy Current Visit: Yes Status: Acute (3) Cannabis dependence Current Visit: Yes Status: Acute (4) Cocaine dependence, uncomplicated Current Visit: Yes Status: Acute (5) Uncomplicated sedative, hypnotic or anxiolytic withdrawal Current Visit: Yes Status: Acute (6) Nicotine dependence Current Visit: Yes Status: Acute (7) Mood disorder Current Visit: Yes Status: Chronic (8) Cirrhosis Current Visit: Yes Status: Chronic (9) GERD (gastroesophageal reflux disease) Current Visit: Yes Status: Chronic (10) HIV (human immunodeficiency virus infection) Current Visit: Yes Status: Chronic (11) Asthma Current Visit: Yes Status: Chronic (12) Hepatitis C Current Visit: Yes Status: Chronic Qualifiers: Viral hepatitis chronicity: chronic Hepatic coma status: without hepatic coma Qualified Code(s): B18.2 - Chronic viral hepatitis C (13) Insomnia Current Visit: Yes Status: Acute - Initial Treatment Plan Initial Treatment Plan: Psychoeducation.Detoxification.Medications : seroquel 100 mg po hs + zoloft 50 mg po daily.Side effects/benefits discussed with patient.He agrees with careplan.Observation.
[2017-03-06] MEDS ORDERED: QUEtiapine FUMARATE 50 MG TABLET PO SCH (22:00)
[2017-03-06] MEDS: QUEtiapine FUMARATE 100 MG TABLET (FP) PO SCH (22:14)
[2017-03-06] MEDS: THIAMINE HCL 100 MG TABLET (FP) PO SCH (22:14)
[2017-03-07] MEDS ORDERED: METHADONE HCL 40 MG DISPERSABLE TABLET ONE (04:08)
[2017-03-07] MEDS ORDERED: METHADONE HCL 10 MG TABLET ONE (04:09)
[2017-03-07] MEDS: METHADONE 80 MG, METHADONE 30 MG PO SCH (05:09)
[2017-03-07] MEDS ORDERED: METHADONE HCL 10 MG TABLET PO SCH (06:00)
[2017-03-07] MEDS: PRENATAL VITAMINS W/ FOLIC ACID TABLET (FP) PO SCH (10:18)
[2017-03-07] MEDS: RANITIDINE HCL 150 MG TABLET (FP) PO SCH ×2 (10:19→22:02)
[2017-03-07] MEDS: hydrOXYzine PAMOATE 50 MG CAPSULE (FP) PO PRN (10:19)
[2017-03-07] MEDS: SERTRALINE HCL 50 MG TABLET (FP) PO SCH (10:19)
[2017-03-07] MEDS: NICOTINE 21 MG/24 HOURS TOPICAL PATCH TD SCH (10:19)
[2017-03-07] MEDS: diazePAM 5 MG TABLET PO SCH ×2 (10:19→22:02)
[2017-03-07] MEDS: cloNIDine HCL 0.1 MG TABLET PO PRN ×2 (10:19→22:02)
--- NOTE | 2017-03-07 11:24 | PN ---
S CIWA - CIWA Score Nausea/Vomitin Muscle Tremors: 3 Anxiety: 2 Agitation: 2 Paroxysmal Sweats: 1-Minimal Palms Moist Orientation: 0-Oriented Tacttile Disturbances: 1-Very Mild Itch/Numbness Auditory Disturbances: 1-Very Mild Visual Disturbances: 1-Very Mild Sensitivity Headache: 2-Mild CIWA-Ar Total Score: 16 S Progress Note (SOAP) Subjective: ALERT,IRRITABLE,ANXIOUS,INTERRUPTED SLEEP,TREMOR Objective: 03/07/17 11:23 Vital Signs Temperature 96.8 F L 03/07/17 10:24 Pulse Rate 78 03/07/17 10:24 Respiratory Rate 18 03/07/17 10:24 Blood Pressure 146/87 03/07/17 10:24 O2 Sat by Pulse Oximetry (%) Laboratory Last Values WBC 3.9 K/mm3 (4.0-10.0) L 03/06/17 07:00 RBC 4.71 M/mm3 (4.00-5.60) 03/06/17 07:00 Hgb 12.9 GM/dL (11.7-16.9) 03/06/17 07:00 Hct 38.8 % (35.4-49) 03/06/17 07:00 MCV 82.4 fl (80-96) 03/06/17 07:00 MCHC 33.2 g/dl (32.0-35.9) 03/06/17 07:00 RDW 15.4 % (11.9-15.9) 03/06/17 07:00 Plt Count 79 K/MM3 (134-434) L D 03/06/17 07:00 MPV 8.3 fl (7.5-11.1) D 03/06/17 07:00 Sodium 136 mmol/L (136-145) 03/06/17 07:00 Potassium 4.2 mmol/L (3.5-5.1) 03/06/17 07:00 Chloride 101 mmol/L (98-107) 03/06/17 07:00 Carbon Dioxide 28 mmol/L (21-32) 03/06/17 07:00 Anion Gap 7 (8-16) L 03/06/17 07:00 BUN 14 mg/dL (7-18) 03/06/17 07:00 Creatinine 0.7 mg/dL (0.7-1.3) 03/06/17 07:00 Creat Clearance w eGFR > 60 (>60) 03/06/17 07:00 Random Glucose 94 mg/dL (74-106) 03/06/17 07:00 Calcium 8.3 mg/dL (8.5-10.1) L 03/06/17 07:00 Total Bilirubin 0.9 mg/dL (0.2-1.0) D 03/06/17 07:00 AST 59 U/L (15-37) H D 03/06/17 07:00 ALT 47 U/L (12-78) D 03/06/17 07:00 Alkaline Phosphatase 67 U/L (45-117) D 03/06/17 07:00 Total Protein 7.2 g/dl (6.4-8.2) 03/06/17 07:00 Albumin 3.3 g/dl (3.4-5.0) L 03/06/17 07:00 Urine Color Dky[place] 03/05/17 13:00 Urine Appearance Clear 03/05/17 13:00 Urine pH 5.0 (5.0-8.0) 03/05/17 13:00 Ur Specific [place] 1.025 (1.005-1.025) 03/05/17 13:00 Urine Protein Negative (NEGATIVE) 03/05/17 13:00 Urine Glucose (UA) Negative (NEGATIVE) 03/05/17 13:00 Urine Ketones Negative (NEGATIVE) 03/05/17 13:00 Urine Blood Negative (NEGATIVE) 03/05/17 13:00 Urine Nitrite Negative (NEGATIVE) 03/05/17 13:00 Urine Bilirubin Negative (NEGATIVE) 03/05/17 13:00 Urine Urobilinogen 2.0 e.u/dl E.U./dl (0.2-1.0) 03/05/17 13:00 Ur Leukocyte Esterase Negative (NEGATIVE) 03/05/17 13:00 RPR Titer Nonreactive (NONREACTIVE) 03/06/17 07:00 Assessment: 03/07/17 11:23 WITHDRAWAL SYMPTOM Plan: CONTINUE DETOX
[2017-03-07] MEDS: diazePAM 5 MG TABLET PO PRN (17:53)
[2017-03-07] MEDS: THIAMINE HCL 100 MG TABLET (FP) PO SCH (22:02)
[2017-03-07] MEDS: QUEtiapine FUMARATE 100 MG TABLET (FP) PO SCH (22:02)
[2017-03-08] MEDS ORDERED: METHADONE HCL 10 MG TABLET ONE (04:26)
[2017-03-08] MEDS ORDERED: METHADONE HCL 40 MG DISPERSABLE TABLET ONE (04:26)
[2017-03-08] MEDS: METHADONE 80 MG, METHADONE 30 MG PO SCH (05:07)
[2017-03-08] MEDS: diazePAM 5 MG TABLET PO PRN (05:10)
[2017-03-08] MEDS: MAG HYDROX/AL HYDROX/SIMETH 30 ML UNIT-DOSE CUP PO PRN (06:37)
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
[2017-03-08] MEDS ORDERED: TOLNAFTATE 1% CREAM 15 GM TUBE TP SCH (10:00)
[2017-03-08] MEDS ORDERED: BACITRACIN 30 GM TUBE TOPICAL OINTMENT TP SCH (10:00)
[2017-03-08] MEDS: diazePAM 5 MG TABLET PO SCH (10:33)
[2017-03-08] MEDS: PRENATAL VITAMINS W/ FOLIC ACID TABLET (FP) PO SCH (10:33)
[2017-03-08] MEDS: cloNIDine HCL 0.1 MG TABLET PO PRN (10:33)
[2017-03-08] MEDS: RANITIDINE HCL 150 MG TABLET (FP) PO SCH (10:33)
[2017-03-08] MEDS: SERTRALINE HCL 50 MG TABLET (FP) PO SCH (10:33)
[2017-03-08] MEDS: NICOTINE 21 MG/24 HOURS TOPICAL PATCH TD SCH (10:34)
[2017-03-08 14:16] VITALS: BP 113/66; PULSE 75; TEMP 96.4
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
[2017-03-09] MEDS ORDERED: diazePAM 5 MG TABLET PO SCH (10:00)
== END 2017-03-08 12:41 | disposition home or self-care (01) | DRG 773 ==
LOC: YASAS 11:51 → Y6N 14:58
PROVIDERS: ADMIT Internal Medicine Addiction Medicine; ATTEND Internal Medicine Addiction Medicine
PROC: HZ2ZZZZ Detoxification Services for Substance Abuse Treatment (ICD-10-PCS; principal; 2017-03-08)
DX: F11.20 Opioid dependence, uncomplicated (principal); F10.230 Alcohol dependence with withdrawal, uncomplicated; F14.20 Cocaine dependence, uncomplicated; F17.210 Nicotine dependence, cigarettes, uncomplicated; G47.00 Insomnia, unspecified; K74.69 Other cirrhosis of liver; K21.9 Gastro-esophageal reflux disease without esophagitis; J45.909 Unspecified asthma, uncomplicated; Z21 Asymptomatic human immunodeficiency virus [HIV] infection status; R63.4 Abnormal weight loss; Z68.1 Body mass index [BMI] 19.9 or less, adult; Z91.19 Patient's noncompliance with other medical treatment and regimen; F91.8 Other conduct disorders
CPT/HCPCS: 36415; 80053; 81003; 85027; 86593; 93005; 93010

== ENCOUNTER 2019-12-19 10:56 | Inpatient (IN) | payer OTHER ==
--- NOTE | 2019-12-19 11:20 | BHS.RME ---
Substance Use & Tx History - Substance Use History Alcohol Substance amount: 1.5 cases of beer Frequency of use: Daily Substance route: Oral Date of Last Use: 12/19/19 Opiates (Heroin) Substance amount: 5-6 bags IV Frequency of use: Daily Substance route: Injection (ex: intravenous or skin popping) Date of Last Use: 12/19/19 Benzodiazepines Substance amount: Klonopin 2 mg tabs 3-4 tabs Frequency of use: Daily Substance route: Oral Date of Last Use: 12/14/19 Cannabis Substance amount: 1-2 bags Frequency of use: Less than 3 times per week Substance route: Smoking Date of Last Use: 12/18/19 Physical/Psych/Mental Status - Behavior General Behavior: Increased activity (restlessness, agitation) Eye Contact: Normal - Cooperativeness Cooperativeness: Cooperative - Thinking Thought Processes: Tight, Logical, Goal Directed Thought content: Future oriented - Physical Health Problems Is patient presently having any pain?: No Does patient presently have any injuries (include location): No Does patient currently have a fever: No Is patient : No CIWA Nausea/Vomitin-Mild Nausea/No Vomiting Muscle Tremors: None (drank earlier today) Anxiety: 4-Mod. Anxious/Guarded Agitation: 2 Paroxysmal Sweats: 1-Minimal Palms Moist Orientation: 3-Disoriented Date>2 days Tacttile Disturbances: 0-None Auditory Disturbances: 0-None Visual Disturbances: 0-None Headache: 0-None Present CIWA-Ar Total Score: 11
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
[2019-12-19 12:35] VITALS: BMI 24.0
[2019-12-19] MEDS ORDERED: ALBUTEROL SO4 HFA INHALER IH PRN (12:51)
[2019-12-19] MEDS ORDERED: BISMUTH SUBSALICYLATE 524 MG/30 ML UD PO PRN (12:52)
[2019-12-19] MEDS ORDERED: MAG HYDROX/AL HYDROX/SIMETH 30 ML UNIT-DOSE CUP PO PRN (12:52)
[2019-12-19] MEDS ORDERED: chlordiazePOXIDE HCL 25 MG CAPSULE PO PRN (12:52)
[2019-12-19] MEDS ORDERED: IBUPROFEN 400 MG TABLET (FP) PO PRN (12:52)
[2019-12-19] MEDS ORDERED: MAGNESIUM CITRATE 300 ML BOTTLE PO PRN (12:52)
[2019-12-19] MEDS ORDERED: MAGNESIUM HYDROX 2400MG/30ML ORAL SUSPENSION 30 ML CUP PO PRN (12:52)
[2019-12-19] MEDS ORDERED: ACETAMINOPHEN 325 MG TABLET (FP) PO PRN ×2 (12:52)
[2019-12-19] MEDS ORDERED: MENTHOL/PHENOL 1 EACH UD MM PRN (12:52)
[2019-12-19] MEDS ORDERED: METHOCARBAMOL 500 MG TABLET PO PRN (12:52)
[2019-12-19] MEDS ORDERED: METHADONE HCL 40 MG DISPERSABLE TABLET PO SCH (13:00)
--- NOTE | 2019-12-19 13:53 | CONSULT ---
[facility] Psychiatric Consult - Data Date of interview: 12/19/19
[2019-12-19] MEDS: GABAPENTIN 100 MG CAPSULE PO SCH ×2 (14:39→22:21)
[2019-12-19] MEDS: NICOTINE 21 MG/24 HOURS TOPICAL PATCH TD SCH (14:40)
[2019-12-19] MEDS: FAMOTIDINE 20 MG TABLET PO SCH ×2 (14:40→22:21)
[2019-12-19 16:18] LABS: HEMATOCRIT 38.4 % (35.4-49); HEMOGLOBIN 12.4 GM/dL (11.7-16.9); MCHC 32.2 g/dl (32.0-35.9); MEAN CELL VOLUME 86.8 fl (80-96); MEAN PLT VOLUME 9.4 fl (7.5-11.1); PLATELET COUNT 122 K/MM3 (134-434); RBC 4.42 M/mm3 (4.00-5.60); RDW 16.1 % (11.9-15.9)
[2019-12-19 16:35] LABS: ALBUMIN 3.5 g/dl (3.4-5.0); BILIRUBIN,TOTAL 0.6 mg/dL (0.2-1); BLOOD UREA NITROGEN 16.3 mg/dL (7-18); CALCIUM 9.1 mg/dL (8.5-10.1); CREATININE 0.7 mg/dL (0.55-1.3); POTASSIUM 3.9 mmol/L (3.5-5.1)
[2019-12-19] MEDS: chlordiazePOXIDE HCL 25 MG CAPSULE PO SCH ×2 (17:38→22:21)
[2019-12-19] MEDS: THIAMINE HCL 100 MG TABLET (FP) PO SCH (22:22)
[2019-12-19] MEDS: MELATONIN 5 MG TABLETS PO PRN (22:22)
[2019-12-20] MEDS ORDERED: METHADONE HCL 40 MG DISPERSABLE TABLET ONE (04:25)
[2019-12-20] MEDS ORDERED: METHADONE HCL 10 MG TABLET ONE (04:25)
[2019-12-20] MEDS: METHADONE 40 MG, METHADONE 10 MG PO SCH (05:36)
[2019-12-20] MEDS: chlordiazePOXIDE HCL 25 MG CAPSULE PO SCH ×4 (05:37→22:12)
[2019-12-20] MEDS: GABAPENTIN 100 MG CAPSULE PO SCH ×3 (05:37→22:12)
[2019-12-20] MEDS: FAMOTIDINE 20 MG TABLET PO SCH ×2 (10:14→22:12)
[2019-12-20] MEDS: NICOTINE 21 MG/24 HOURS TOPICAL PATCH TD SCH (10:14)
[2019-12-20] MEDS: PRENATAL VITAMINS W/ FOLIC ACID TABLET (FP) PO SCH (10:14)
--- NOTE | 2019-12-20 11:56 | PN ---
[facility] CIWA - CIWA Score Nausea/Vomitin-Mild Nausea/No Vomiting Muscle Tremors: 3 Anxiety: 3 Agitation: 1-Slight > Activity Paroxysmal Sweats: 2 Orientation: 1-Uncertain about Date Tacttile Disturbances: 0-None Auditory Disturbances: 0-None Visual Disturbances: 1-Very Mild Sensitivity Headache: 0-None Present CIWA-Ar Total Score: 12 S Progress Note (SOAP) Subjective: 44 years old male admitted on 12/19/19 for alcohol and benzo withdrawal sx management treating with librium detox regiment irritable tremor and restlessness received methadone 50 mg feeling ok encourage the patient to attend behavior and psychosocial therapies groups and meetings while in detox Objective: 12/20/19 12:09 Vital Signs Temperature 96.5 F L 12/20/19 08:45 Pulse Rate 67 12/20/19 08:45 Respiratory Rate 18 12/20/19 08:45 Blood Pressure 112/73 12/20/19 08:45 O2 Sat by Pulse Oximetry (%) Laboratory Last Values WBC 4.0 K/mm3 (4.0-10.0) 12/19/19 12:15 RBC 4.42 M/mm3 (4.00-5.60) 12/19/19 12:15 Hgb 12.4 GM/dL (11.7-16.9) 12/19/19 12:15 Hct 38.4 % (35.4-49) 12/19/19 12:15 MCV 86.8 fl (80-96) 12/19/19 12:15 MCH 28.0 pg (25.7-33.7) 12/19/19 12:15 MCHC 32.2 g/dl (32.0-35.9) 12/19/19 12:15 RDW 16.1 % (11.9-15.9) H 12/19/19 12:15 Plt Count 122 K/MM3 (134-434) L D 12/19/19 12:15 MPV 9.4 fl (7.5-11.1) D 12/19/19 12:15 Sodium 137 mmol/L (136-145) 12/19/19 12:15 Potassium 3.9 mmol/L (3.5-5.1) 12/19/19 12:15 Chloride 103 mmol/L (98-107) 12/19/19 12:15 Carbon Dioxide 25 mmol/L (21-32) 12/19/19 12:15 Anion Gap 8 MMOL/L (8-16) 12/19/19 12:15 BUN 16.3 mg/dL (7-18) 12/19/19 12:15 Creatinine 0.7 mg/dL (0.55-1.3) 12/19/19 12:15 Est GFR (CKD-EPI)AfAm 131.17 12/19/19 12:15 Est GFR (CKD-EPI)NonAf 113.17 12/19/19 12:15 Random Glucose 97 mg/dL (74-106) 12/19/19 12:15 Calcium 9.1 mg/dL (8.5-10.1) 12/19/19 12:15 Total Bilirubin 0.6 mg/dL (0.2-1) 12/19/19 12:15 AST 30 U/L (15-37) 12/19/19 12:15 ALT 25 U/L (13-61) 12/19/19 12:15 Alkaline Phosphatase 84 U/L (45-117) 12/19/19 12:15 Total Protein 9.0 g/dl (6.4-8.2) H 12/19/19 12:15 Albumin 3.5 g/dl (3.4-5.0) 12/19/19 12:15 RPR Titer Nonreactive (NONREACTIVE) 12/19/19 12:15 lab noted Assessment: 12/20/19 12:10 alcohol and benzo withdrawal Plan: librium regiment
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
[2019-12-20] MEDS: THIAMINE HCL 100 MG TABLET (FP) PO SCH (22:12)
[2019-12-20] MEDS: MELATONIN 5 MG TABLETS PO PRN (22:13)
[2019-12-21] MEDS ORDERED: METHADONE HCL 40 MG DISPERSABLE TABLET ONE (03:53)
[2019-12-21] MEDS ORDERED: METHADONE HCL 10 MG TABLET ONE (03:53)
[2019-12-21] MEDS: chlordiazePOXIDE HCL 25 MG CAPSULE PO SCH ×4 (05:38→22:37)
[2019-12-21] MEDS: METHADONE 40 MG, METHADONE 10 MG PO SCH (05:38)
[2019-12-21] MEDS: GABAPENTIN 100 MG CAPSULE PO SCH ×3 (05:38→22:37)
[2019-12-21] MEDS: PRENATAL VITAMINS W/ FOLIC ACID TABLET (FP) PO SCH (10:38)
[2019-12-21] MEDS: FAMOTIDINE 20 MG TABLET PO SCH ×2 (10:38→22:37)
[2019-12-21] MEDS: NICOTINE 21 MG/24 HOURS TOPICAL PATCH TD SCH (10:39)
--- NOTE | 2019-12-21 11:24 | PN ---
[facility] CIWA - CIWA Score Nausea/Vomitin-Mild Nausea/No Vomiting Muscle Tremors: 2 Anxiety: 3 Agitation: 0-Normal Activity Paroxysmal Sweats: 1-Minimal Palms Moist Orientation: 0-Oriented Tacttile Disturbances: 0-None Auditory Disturbances: 0-None Visual Disturbances: 2-Mild Sensitivity Headache: 1-Very Mild CIWA-Ar Total Score: 10 S Progress Note (SOAP) Subjective: 44 years old male admitted on 12/19/19 for alcohol and benzo withdrawal sx management treating with librium detox regiment ate breakfast and methadone 50mg tolerated well Objective: 12/21/19 11:25 Vital Signs Temperature 97.6 F 12/21/19 08:51 Pulse Rate 65 12/21/19 08:51 Respiratory Rate 18 12/21/19 08:51 Blood Pressure 100/60 12/21/19 08:51 O2 Sat by Pulse Oximetry (%) Laboratory Last Values WBC 4.0 K/mm3 (4.0-10.0) 12/19/19 12:15 RBC 4.42 M/mm3 (4.00-5.60) 12/19/19 12:15 Hgb 12.4 GM/dL (11.7-16.9) 12/19/19 12:15 Hct 38.4 % (35.4-49) 12/19/19 12:15 MCV 86.8 fl (80-96) 12/19/19 12:15 MCH 28.0 pg (25.7-33.7) 12/19/19 12:15 MCHC 32.2 g/dl (32.0-35.9) 12/19/19 12:15 RDW 16.1 % (11.9-15.9) H 12/19/19 12:15 Plt Count 122 K/MM3 (134-434) L D 12/19/19 12:15 MPV 9.4 fl (7.5-11.1) D 12/19/19 12:15 Sodium 137 mmol/L (136-145) 12/19/19 12:15 Potassium 3.9 mmol/L (3.5-5.1) 12/19/19 12:15 Chloride 103 mmol/L (98-107) 12/19/19 12:15 Carbon Dioxide 25 mmol/L (21-32) 12/19/19 12:15 Anion Gap 8 MMOL/L (8-16) 12/19/19 12:15 BUN 16.3 mg/dL (7-18) 12/19/19 12:15 Creatinine 0.7 mg/dL (0.55-1.3) 12/19/19 12:15 Est GFR (CKD-EPI)AfAm 131.17 12/19/19 12:15 Est GFR (CKD-EPI)NonAf 113.17 12/19/19 12:15 Random Glucose 97 mg/dL (74-106) 12/19/19 12:15 Calcium 9.1 mg/dL (8.5-10.1) 12/19/19 12:15 Total Bilirubin 0.6 mg/dL (0.2-1) 12/19/19 12:15 AST 30 U/L (15-37) 12/19/19 12:15 ALT 25 U/L (13-61) 12/19/19 12:15 Alkaline Phosphatase 84 U/L (45-117) 12/19/19 12:15 Total Protein 9.0 g/dl (6.4-8.2) H 12/19/19 12:15 Albumin 3.5 g/dl (3.4-5.0) 12/19/19 12:15 RPR Titer Nonreactive (NONREACTIVE) 12/19/19 12:15 lab oted Assessment: 12/21/19 11:25 alcohol and benzo withdrawal Plan: librium regiment
[2019-12-21] MEDS: THIAMINE HCL 100 MG TABLET (FP) PO SCH (22:37)
[2019-12-21] MEDS: hydrOXYzine PAMOATE 25 MG CAPSULE (FP) PO PRN (22:37)
[2019-12-22] MEDS ORDERED: chlordiazePOXIDE HCL 10 MG CAPSULE PO PRN
[2019-12-22] MEDS ORDERED: METHADONE HCL 10 MG TABLET ONE (04:07)
[2019-12-22] MEDS ORDERED: METHADONE HCL 40 MG DISPERSABLE TABLET ONE (04:08)
[2019-12-22] MEDS: METHADONE 40 MG, METHADONE 10 MG PO SCH (05:24)
[2019-12-22] MEDS: chlordiazePOXIDE HCL 10 MG CAPSULE PO SCH ×4 (05:24→22:57)
[2019-12-22] MEDS: GABAPENTIN 100 MG CAPSULE PO SCH ×3 (05:24→22:57)
[2019-12-22] MEDS: PRENATAL VITAMINS W/ FOLIC ACID TABLET (FP) PO SCH (10:13)
[2019-12-22] MEDS: FAMOTIDINE 20 MG TABLET PO SCH ×2 (10:13→22:57)
[2019-12-22] MEDS: NICOTINE 21 MG/24 HOURS TOPICAL PATCH TD SCH (10:13)
[2019-12-22] MEDS: hydrOXYzine PAMOATE 25 MG CAPSULE (FP) PO PRN (10:14)
--- NOTE | 2019-12-22 12:33 | PN ---
S CIWA - CIWA Score Nausea/Vomitin-No Nausea/No Vomiting Muscle Tremors: 2 Anxiety: 2 Agitation: 0-Normal Activity Paroxysmal Sweats: 2 Orientation: 0-Oriented Tacttile Disturbances: 0-None Auditory Disturbances: 0-None Visual Disturbances: 0-None Headache: 0-None Present CIWA-Ar Total Score: 6 BHS Progress Note (SOAP) Subjective: 44 years old male admitted on 12/17/19 for alcohol and benzo withdrawal sx management treating wit librium detox regiment feeling better today less tremor slept through the night Objective: 12/22/19 12:33 Vital Signs Temperature 97.3 F L 12/22/19 08:34 Pulse Rate 94 H 12/22/19 08:34 Respiratory Rate 18 12/22/19 08:34 Blood Pressure 119/88 12/22/19 08:34 O2 Sat by Pulse Oximetry (%) Laboratory Last Values WBC 4.0 K/mm3 (4.0-10.0) 12/19/19 12:15 RBC 4.42 M/mm3 (4.00-5.60) 12/19/19 12:15 Hgb 12.4 GM/dL (11.7-16.9) 12/19/19 12:15 Hct 38.4 % (35.4-49) 12/19/19 12:15 MCV 86.8 fl (80-96) 12/19/19 12:15 MCH 28.0 pg (25.7-33.7) 12/19/19 12:15 MCHC 32.2 g/dl (32.0-35.9) 12/19/19 12:15 RDW 16.1 % (11.9-15.9) H 12/19/19 12:15 Plt Count 122 K/MM3 (134-434) L D 12/19/19 12:15 MPV 9.4 fl (7.5-11.1) D 12/19/19 12:15 Sodium 137 mmol/L (136-145) 12/19/19 12:15 Potassium 3.9 mmol/L (3.5-5.1) 12/19/19 12:15 Chloride 103 mmol/L (98-107) 12/19/19 12:15 Carbon Dioxide 25 mmol/L (21-32) 12/19/19 12:15 Anion Gap 8 MMOL/L (8-16) 12/19/19 12:15 BUN 16.3 mg/dL (7-18) 12/19/19 12:15 Creatinine 0.7 mg/dL (0.55-1.3) 12/19/19 12:15 Est GFR (CKD-EPI)AfAm 131.17 12/19/19 12:15 Est GFR (CKD-EPI)NonAf 113.17 12/19/19 12:15 Random Glucose 97 mg/dL (74-106) 12/19/19 12:15 Calcium 9.1 mg/dL (8.5-10.1) 12/19/19 12:15 Total Bilirubin 0.6 mg/dL (0.2-1) 12/19/19 12:15 AST 30 U/L (15-37) 12/19/19 12:15 ALT 25 U/L (13-61) 12/19/19 12:15 Alkaline Phosphatase 84 U/L (45-117) 12/19/19 12:15 Total Protein 9.0 g/dl (6.4-8.2) H 12/19/19 12:15 Albumin 3.5 g/dl (3.4-5.0) 12/19/19 12:15 RPR Titer Nonreactive (NONREACTIVE) 12/19/19 12:15 lab noted Assessment: 12/22/19 12:33 alcohol and benzo withdrawal Plan: librium regiment
[2019-12-22] MEDS: THIAMINE HCL 100 MG TABLET (FP) PO SCH (22:57)
[2019-12-23] MEDS ORDERED: METHADONE HCL 40 MG DISPERSABLE TABLET ONE (04:45)
[2019-12-23] MEDS ORDERED: METHADONE HCL 10 MG TABLET ONE (04:45)
[2019-12-23] MEDS: METHADONE 40 MG, METHADONE 10 MG PO SCH (05:07)
[2019-12-23] MEDS: chlordiazePOXIDE HCL 10 MG CAPSULE PO SCH ×2 (05:07→17:05)
[2019-12-23] MEDS: GABAPENTIN 100 MG CAPSULE PO SCH ×3 (05:07→20:59)
[2019-12-23] MEDS: NICOTINE 21 MG/24 HOURS TOPICAL PATCH TD SCH (10:05)
[2019-12-23] MEDS: PRENATAL VITAMINS W/ FOLIC ACID TABLET (FP) PO SCH (10:05)
[2019-12-23] MEDS: FAMOTIDINE 20 MG TABLET PO SCH ×2 (10:06→21:00)
--- NOTE | 2019-12-23 12:24 | PN ---
[facility] CIWA - CIWA Score Nausea/Vomitin-Mild Nausea/No Vomiting Muscle Tremors: None Anxiety: 1-Mildly Anxious Agitation: 1-Slight > Activity Paroxysmal Sweats: No Perspiration Orientation: 1-Uncertain about Date Tacttile Disturbances: 0-None Auditory Disturbances: 0-None Visual Disturbances: 1-Very Mild Sensitivity Headache: 0-None Present CIWA-Ar Total Score: 5 BHS Progress Note (SOAP) Subjective: Complains of insomnia Asking for higher dose nicotine patch has chronic low back pain on gabapentin, would like 600 mg tid Objective: 12/23/19 12:21 Laboratory Tests 12/19/19 12/19/19 12/19/19 12:15 12:15 12:15 WBC 4.0 RBC 4.42 Hgb 12.4 Hct 38.4 MCV 86.8 MCH 28.0 MCHC 32.2 RDW 16.1 H Plt Count 122 L D MPV 9.4 D Sodium 137 Potassium 3.9 Chloride 103 Carbon Dioxide 25 Anion Gap 8 BUN 16.3 Creatinine 0.7 Est GFR (CKD-EPI)AfAm 131.17 Est GFR (CKD-EPI)NonAf 113.17 Random Glucose 97 Calcium 9.1 Total Bilirubin 0.6 AST 30 ALT 25 Alkaline Phosphatase 84 Total Protein 9.0 H Albumin 3.5 RPR Titer Nonreactive Vital Signs Temperature 96.9 F L 12/23/19 08:48 Pulse Rate 98 H 12/23/19 08:48 Respiratory Rate 18 12/23/19 08:48 Blood Pressure 118/62 12/23/19 08:48 O2 Sat by Pulse Oximetry (%) PE Gnl: WDWN, in mild distress HEENT: small bruise right lateral orbit, suborbital Mental status: anxious Motor; nl coord: nl Gait: nl Assessment: 12/23/19 12:22 1. Alcohol use disorder 2. On Methadone maintenence 3. insomnia, seen by Psychiatry who recommended continue melatonin 4. chronic low back pian 5. nicotine dependence Plan: 1. continue Librium withdrawal protocol 2. continue methadone maintenence 3. increase nicotine patch to 21 mg per pt request 4. increase melatonin to 10 mg hs 5. continue gabapentin, will increase to 200 mg tid 6. pending discharge in am
[2019-12-23] MEDS ORDERED: MELATONIN 5 MG TABLETS PO PRN (12:25)
[2019-12-23] MEDS ORDERED: NICOTINE 21 MG/24 HOURS TOPICAL PATCH TD SCH (12:26)
[2019-12-23] MEDS: hydrOXYzine PAMOATE 25 MG CAPSULE (FP) PO PRN (20:58)
[2019-12-23] MEDS: THIAMINE HCL 100 MG TABLET (FP) PO SCH (21:00)
[2019-12-24] MEDS ORDERED: METHADONE HCL 10 MG TABLET ONE (04:48)
[2019-12-24] MEDS ORDERED: METHADONE HCL 40 MG DISPERSABLE TABLET ONE (04:49)
[2019-12-24] MEDS ORDERED: chlordiazePOXIDE HCL 10 MG CAPSULE PO ONE (05:00)
[2019-12-24] MEDS: GABAPENTIN 100 MG CAPSULE PO SCH (05:59)
[2019-12-24] MEDS: METHADONE 40 MG, METHADONE 10 MG PO SCH (05:59)
[2019-12-24 09:49] VITALS: BP 103/65; PULSE 68; TEMP 98.5
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
== END 2019-12-24 10:18 | disposition home or self-care (01) | DRG 773 ==
LOC: YASAS 10:56 → Y3N 13:00
PROVIDERS: ADMIT Allergy & Immunology; ATTEND Allergy & Immunology
PROC: HZ2ZZZZ Detoxification Services for Substance Abuse Treatment (ICD-10-PCS; principal; 2019-12-19)
DX: F10.230 Alcohol dependence with withdrawal, uncomplicated (principal); F11.20 Opioid dependence, uncomplicated; F13.230 Sedative, hypnotic or anxiolytic dependence with withdrawal, uncomplicated; F14.20 Cocaine dependence, uncomplicated; F12.20 Cannabis dependence, uncomplicated; F17.210 Nicotine dependence, cigarettes, uncomplicated; F19.24 Other psychoactive substance dependence with psychoactive substance-induced mood disorder; F32.9 Major depressive disorder, single episode, unspecified; F41.9 Anxiety disorder, unspecified; Z21 Asymptomatic human immunodeficiency virus [HIV] infection status; J45.909 Unspecified asthma, uncomplicated; K21.9 Gastro-esophageal reflux disease without esophagitis; K74.60 Unspecified cirrhosis of liver; M54.5 Low back pain; Z86.19 Personal history of other infectious and parasitic diseases; Z91.013 Allergy to seafood
CPT/HCPCS: 36415; 80053; 85027; 86593

== ENCOUNTER 2025-08-27 22:45 | Inpatient (IN) | payer OTHER ==
[2025-08-28] MEDS ORDERED: VANCOMYCIN 1 GM PREMIX (F) 1 GM/200 ML BAG ONE ×3 (00:03→12:09)
[2025-08-28] MEDS ORDERED: PIPERACILLIN/TAZOB 4.5 GM 4.5 GM/100 ML BAG IVPB ONE (00:03)
[2025-08-28] MEDS ORDERED: ACETAMINOPHEN INJECTION 100 ML ONE (00:10)
[2025-08-28] MEDS: ACETAMINOPHEN 1000 MG/100 ML BAG IVPB ONE (00:45)
[2025-08-28] MEDS: SODIUM CHLORIDE 0.9% 500 ML INFUS.BAG IV ONE (00:45)
[2025-08-28] MEDS: PIPERACILLIN/TAZOB 4.5 GM 4.5 GM in DEXTROSE 5%-WATER 100 ML IVPB ONE (00:45)
[2025-08-28 01:07] LABS: ABSOLUTE IMMATURE GRANULOCYTES 0.43 x10^3/uL (0.0-0.031); BASOPHILS # 0.02 x10^3/uL (0.01-0.08); EOSINOPHIL % 0.1 % (0.8-7.0); EOSINOPHILS # 0.01 x10^3/uL (0.04-0.54); MCHC 32.7 g/dl (32.3-36.5); MEAN CELL VOLUME 86.3 fl (79.0-92.2); MEAN PLT VOLUME 10.7 fl (9.4-12.4); MONOCYTE # 0.72 x10^3/uL (0.30-0.82); MONOCYTE % 6.8 % (5.3-12.2); RDW 17.4 % (12.2-16.1)
[2025-08-28 01:21] LABS: INR 1.13 (0.83-1.09); PROTHROMBIN TIME (PATIENT) 12.3 SEC (9.7-13.0)
[2025-08-28 01:23] LABS: ACTIVATED PTT 25.8 SECONDS (25.2-36.5)
[2025-08-28 01:28] LABS: GLUCOSE,RANDOM 91 mg/dL (74-106)
[2025-08-28 01:29] LABS: TOT PROT 5.5 g/dl (6.4-8.2)
[2025-08-28 01:30] LABS: CO2 25 mmol/L (21-32)
[2025-08-28 01:31] LABS: ALK PHOS 101 U/L (40-150)
[2025-08-28 01:33] LABS: LACTIC ACID 2.2 mmol/L (0.4-2.0)
[2025-08-28 01:34] LABS: CREATININE 1.14 mg/dL (0.55-1.3); SGOT/AST 39 U/L (5-34); SGPT/ALT 9 U/L (0-55)
[2025-08-28 02:12] LABS: ERYTHROCYTE SEDIMENTATION RATE 102 mm/hr (0-20)
[2025-08-28] MEDS: VANCOMYCIN 1,000 MG in DEXTROSE 5%-WATER - 250 ML IVPB ONE (03:14)
[2025-08-28] MEDS ORDERED: VANCOMYCIN 1,000 MG in DEXTROSE 5%-WATER - 250 ML IVPB SCH (04:15)
[2025-08-28] MEDS ORDERED: GABAPENTIN 300 MG CAPSULE ONE (05:37)
[2025-08-28] MEDS ORDERED: AMPICILLIN NA/SULBACTAM NA 3 GM/100 ML BAG IVPB ONE ×2 (05:38→11:05)
[2025-08-28] MEDS: SODIUM CHLORIDE 1,000 ML IV SCH (05:51)
[2025-08-28] MEDS: GABAPENTIN 300 MG CAPSULE PO SCH (05:52)
[2025-08-28] MEDS: AMPICILLIN NA/SULBACTAM NA 3 GM in SODIUM CHLORIDE 100 ML IVPB SCH (05:52)
[2025-08-28] MEDS ORDERED: DOLUTEGRAVIR SODIUM PO SCH (10:00)
[2025-08-28] MEDS ORDERED: ACETAMINOPHEN 325 MG TABLET (FP) ONE (10:18)
[2025-08-28] MEDS: FAMOTIDINE 20 MG TABLET PO SCH (10:29)
[2025-08-28] MEDS: EMTRICITABINE/TENOFOV ALAFENAM (DESCOVY) TABLET PO SCH (10:29)
[2025-08-28] MEDS: ACETAMINOPHEN 325 MG TABLET (FP) PO PRN (11:00)
[2025-08-28] MEDS: VANCOMYCIN/WATER FOR INJ (PEG) 1,000 MG/200 ML BAG IVPB SCH ×2 (12:20→21:45)
[2025-08-28] MEDS: DOLUTEGRAVIR SODIUM 50 MG TABLET (NON-FORMULARY) PO SCH (16:29)
[2025-08-28] MEDS: PIPERACILLIN/TAZOB 3.375 GM 3.375 GM in DEXTROSE 5%-WATER - 50 ML IVPB SCH (17:17)
[2025-08-28 18:46] VITALS: BMI 22.4
[2025-08-29 01:58] VITALS: BP 103/64; PULSE 116; RESP 18; TEMP 98.4
[2025-08-29 07:25] LABS: ABSOLUTE IMMATURE GRANULOCYTES 0.21 x10^3/uL (0.0-0.031); BASOPHILS # 0.03 x10^3/uL (0.01-0.08); EOSINOPHIL % 0.1 % (0.8-7.0); EOSINOPHILS # 0.01 x10^3/uL (0.04-0.54); MCHC 31.8 g/dl (32.3-36.5); MEAN CELL VOLUME 87.3 fl (79.0-92.2); MEAN PLT VOLUME 10.8 fl (9.4-12.4); MONOCYTE # 0.84 x10^3/uL (0.30-0.82); MONOCYTE % 5.7 % (5.3-12.2); RDW 18.2 % (12.2-16.1)
[2025-08-29 07:31] LABS: INR 1.23 (0.83-1.09); PROTHROMBIN TIME (PATIENT) 13.5 SEC (9.7-13.0)
[2025-08-29 07:42] LABS: GLUCOSE,RANDOM 120 mg/dL (74-106); TOT PROT 5.2 g/dl (6.4-8.2)
[2025-08-29 07:43] LABS: CO2 24 mmol/L (21-32)
[2025-08-29 07:45] LABS: ALK PHOS 98 U/L (40-150)
[2025-08-29 07:47] LABS: SGOT/AST 33 U/L (5-34); SGPT/ALT 7 U/L (0-55)
[2025-08-29 07:48] LABS: CREATININE 1.18 mg/dL (0.55-1.3)
[2025-08-29 15:12] LABS: HIV INTERPRETATION PRESUMPTIVE POSITIVE (NEGATIVE)
== END 2025-08-29 07:20 | disposition left against medical advice (07) | DRG 383 ==
LOC: JER 22:45 → JERBED 08-28 03:27 → OBSVTOIN 08-28 08:54 → J4W 08-28 15:45
PROVIDERS: ADMIT Hospitalist; ATTEND Internal Medicine
DX: L03.116 Cellulitis of left lower limb (principal); L03.115 Cellulitis of right lower limb; F11.20 Opioid dependence, uncomplicated; E11.9 Type 2 diabetes mellitus without complications; J44.9 Chronic obstructive pulmonary disease, unspecified; D63.8 Anemia in other chronic diseases classified elsewhere; Z59.00 Homelessness unspecified; R64 Cachexia; Z99.3 Dependence on wheelchair; Z21 Asymptomatic human immunodeficiency virus [HIV] infection status
CPT/HCPCS: 36415; 73590-TC-LT-FY; 73590-TC-RT-FY; 73610-TC-LT-FY; 73610-TC-RT-FY; 73630-TC-LT; 73630-TC-RT-FY; 80053; 82330; 83605; 83735; 85025; 85610; 85651; 85730; 86140; 86359; 86360; 86850; 86900; 86901; 87040; 87081; 87389; 93005; 93010; 99285-25; G0378